=== PATIENT | female | born 2000 | race Caucasian/White ===

== ENCOUNTER 2018-01-09 19:48 | Emergency (ER) | payer OTHER ==
[~2018-01-09] VITALS: Ht 162.6 cm; Wt 95.3 kg
[2018-01-09] MEDS ORDERED: TOPAMAX 25 MG T25 M1 PO (19:56)
[2018-01-09 20:55] VITALS: BP 134/81
== END 2018-01-09 20:56 | disposition home or self-care (01) ==
LOC: M.ERS 19:48
DX: S60.022A Contusion of left index finger without damage to nail, initial encounter (principal); G43.909 Migraine, unspecified, not intractable, without status migrainosus; W23.0XXA Caught, crushed, jammed, or pinched between moving objects, initial encounter; Y93.89 Activity, other specified; Y92.89 Other specified places as the place of occurrence of the external cause; Y99.8 Other external cause status